=== PATIENT | male | born 1985 | race African-American/Black ===

== ENCOUNTER 2025-02-10 11:45 | Emergency (ER) | payer SELFPAY ==
[~2025-02-10] VITALS: Ht 182.9 cm; Wt 138.3 kg
[2025-02-10 13:15] LABS: BASO # 0.0 10^3/uL (0.0-0.2); BASO % 0.5 % (0.0-1.0); EOS # 0.1 10^3/uL (0.0-0.5); EOS % 1.8 % (0.0-3.0); LYMPH # 1.5 10^3/uL (1.5-5.0); LYMPH % 27.3 % (24.0-44.0); MONO # 0.6 10^3/uL (0.0-0.8); MONO % 10.1 % (2.0-8.0); NEUTROPHILS # 3.3 10^3/uL (1.5-8.5); NEUTROPHILS % 60.1 % (36.0-66.0); PLATELET COUNT, AUTOMATED 294 10^3/uL (150-450)
[2025-02-10 13:25] LABS: ERYTHROCYTE SEDIMENTATION RATE 40 mm/hr (0-15)
[2025-02-10 13:32] LABS: C REACTIVE PROTEIN QUANTITATIV 0.95 MG/DL (<1.0)
[2025-02-10] MEDS ORDERED: MEDR4PAK PO (13:37)
[2025-02-10 13:49] VITALS: BP 170/94; TEMP 97.3; O2SAT 97
== END 2025-02-10 13:52 | disposition home or self-care (01) ==
LOC: M ED 11:45
DX: M79.645 Pain in left finger(s) (principal)